=== PATIENT | female | born 1950 | race Caucasian/White ===

== ENCOUNTER 2016-11-18 02:05 | Inpatient (IN) | payer OTHER, BC ==
[~2016-11-18] VITALS: Ht 160 cm; Wt 49.0 kg
[2016-11-18 03:25] LABS: BASOPHIL % 0.4 % (0-2); PLATELET COUNT 237 x10^3mcL (130-400); RED CELL DISTRIBUTION WIDTH 12.9 % (11.5-14.5)
[2016-11-18 03:32] LABS: ALBUMIN 4.2 g/dL (3.4-5.0); BILIRUBIN TOTAL 0.74 mg/dL (0.20-1.00); CALCIUM 9.8 mg/dL (8.5-10.1); CARBON DIOXIDE 20.2 mmol/L (21-32)
[2016-11-18 03:37] LABS: POTASSIUM SERUM 6.1 mmol/L (3.5-5.1)
[2016-11-18 04:46] LABS: UA SPECIFIC GRAVITY >=1.030 (1.005-1.035); microscopic required? YES; urine erythrocyte NEGATIVE (NEGATIVE)
[2016-11-18] MEDS ORDERED: NOL10 PO (05:08)
[2016-11-18] MEDS ORDERED: SYNTHROID0.088 MG PO (05:08)
[2016-11-18 05:55] LABS: T3 TOTAL 1.13 ng/mL
[2016-11-18 06:36] VITALS: BP 116/58
[2016-11-18 06:41] LABS: CHOLESTEROL/HDL RATIO 3.8; MAGNESIUM 2.1 mg/dL (1.8-2.4); PHOSPHOROUS 5.4 mg/dL (2.5-4.9)
[2016-11-18 06:42] LABS: FREE T4 1.23 ng/dL (0.76-1.46); FREE THYROXINE INDEX 4.5 ug/dL (1.4-4.5)
[2016-11-18 10:21] LABS: CALCIUM 7.7 mg/dL (8.5-10.1); CARBON DIOXIDE 22.4 mmol/L (21-32); CREATININE SERUM 1.4 mg/dL (0.6-1.0); POTASSIUM SERUM 5.7 mmol/L (3.5-5.1)
[2016-11-18 12:34] VITALS: BP 100/54
[2016-11-18 14:00] VITALS: BP 107/61
[2016-11-18 18:21] VITALS: BP 94/57
[2016-11-18 18:52] LABS: CARBON DIOXIDE 24.9 mmol/L (21-32); CREATININE SERUM 1.2 mg/dL (0.6-1.0); POTASSIUM SERUM 4.2 mmol/L (3.5-5.1)
[2016-11-18 21:03] VITALS: BP 103/52
[2016-11-19 06:06] VITALS: BP 101/54
[2016-11-19 06:26] LABS: CALCIUM 7.5 mg/dL (8.5-10.1); CARBON DIOXIDE 20.2 mmol/L (21-32); CHLORIDE SERUM 109 mmol/L (98-107); CREATININE SERUM 0.9 mg/dL (0.6-1.0); GFR1 > 60 mL/min; GLUCOSE SERUM 80 mg/dL (74-106); PHOSPHOROUS 1.7 mg/dL (2.5-4.9); POTASSIUM SERUM 3.8 mmol/L (3.5-5.1); SODIUM SERUM 138 mmol/L (136-145)
[2016-11-19 07:09] LABS: PLATELET COUNT 138 x10^3mcL (130-400); RED CELL DISTRIBUTION WIDTH 13.1 % (11.5-14.5)
[2016-11-19 07:14] LABS: BASOPHIL % 0 % (0-2)
[2016-11-19 08:48] VITALS: BP 94/55
[2016-11-19 13:16] VITALS: BP 108/56
[2016-11-19] MEDS ORDERED: LAC PO (13:39)
[2016-11-19] MEDS ORDERED: ZOF4 PO (13:49)
[2016-11-19] MEDS ORDERED: AUG500 PO (14:14)
[2016-11-19 14:19] VITALS: BP 108/56
== END 2016-11-19 15:00 | disposition home or self-care (01) | DRG 871 ==
LOC: ED 02:05 → DU 05:07
PROVIDERS: Emergency Medicine; ADMIT Student in an Organized Health Care Education/Training Program
DX: A41.9 Sepsis, unspecified organism (principal); N17.0 Acute kidney failure with tubular necrosis; N39.0 Urinary tract infection, site not specified; E87.1 Hypo-osmolality and hyponatremia; Z68.1 Body mass index [BMI] 19.9 or less, adult; E86.0 Dehydration; E87.5 Hyperkalemia; E03.9 Hypothyroidism, unspecified; M81.0 Age-related osteoporosis without current pathological fracture; E83.39 Other disorders of phosphorus metabolism; E78.5 Hyperlipidemia, unspecified; Z87.440 Personal history of urinary (tract) infections; Z85.3 Personal history of malignant neoplasm of breast
CPT/HCPCS: 83880; 84439; J2405; J2543; J2765; J7030; Q0092